=== PATIENT | male | born 1995 | race Caucasian/White ===

== ENCOUNTER 2023-09-10 17:33 | Emergency (ER) | payer OTHER ==
[~2023-09-10] VITALS: Ht 190.5 cm; Wt 97.5 kg
[~2023-09-10 17:33] MED LIST: AMOXICILLIN875 MG PO; IBUPROFEN200 MG PO; TRAMADOL HCL50 MG PO
[2023-09-10] MEDS ORDERED: HYDROCODON-ACE1 EA11 PO (19:14)
[2023-09-10 19:42] VITALS: BP 149/89
== END 2023-09-10 19:40 | disposition home or self-care (01) ==
LOC: ED 17:33
DX: S43.004A Unspecified dislocation of right shoulder joint, initial encounter (principal); X50.1XXA Overexertion from prolonged static or awkward postures, initial encounter; Y93.72 Activity, wrestling; Z87.891 Personal history of nicotine dependence
CPT/HCPCS: 23650; 73030; 99283-25; A9270; J1170; J2704